=== PATIENT | male | born 1960 | race Caucasian/White ===

== ENCOUNTER 2017-12-23 14:24 | Inpatient (IN) | payer MEDICARE, MEDICAID ==
[~2017-12-23] VITALS: Ht 182.9 cm; Wt 63.5 kg
[~2017-12-23 14:24] MED LIST: AMLO5TAB4 PO; BUPR300T54 PO; DILT180C54 PO; DULO-31 PO; GABA-338 PO; METF500T PO; MOME17SP NS; NORCO10T PO; SITA100T15 PO; TAMS0.4C32 PO; ZOC40T PO; [UNRECOGNIZED DRUG - CODE] PO
[2017-12-23] MEDS ORDERED: ondansetron/PF 4mg/2ml inj IV ONE (14:40)
[2017-12-23] MEDS ORDERED: aspirin 81mg tab.chew PO ONE ×2 (14:40)
[2017-12-23 14:56] LABS: BASOPHILS % (AUTO) 0 % (0-1); EOSINOPHILS # (AUTO) 0.2 X10'3 (0-0.9); EOSINOPHILS % (AUTO) 1.6 % (0-6); HEMOGLOBIN 14.3 g/dl (14.0-17.9); LYMPHOCYTES # (AUTO) 0.9 X10'3 (1.1-4.8); MEAN CORPUSCULAR HEMOGLOBIN 29.6 PG (27.0-31.0); MEAN CORPUSCULAR HGB CONC 34.7 % (33.0-36.5); MEAN CORPUSCULAR VOLUME 85.3 FL (78-98); MEAN PLATELET VOLUME 7.1 FL (7.4-10.4); MONOCYTES # (AUTO) 1.1 X10'3 (0-0.9); NEUTROPHILS % (AUTO) 85.4 % (42-75); PLATELET COUNT 305 X10'3 (140-440); RED BLOOD COUNT 4.81 X10'6 (4.70-6.10); RED CELL DISTRIBUTION WIDTH 12.8 % (11.5-14.5); WHITE BLOOD COUNT 15.2 X10'3 (4.5-11.0)
[2017-12-23 15:06] LABS: INR 0.9 INR; PARTIAL THROMBOPLASTIN TIME 28 SECONDS (22-32); PROTHROMBIN TIME 9.1 SECONDS (9.0-12.0)
[2017-12-23 15:18] LABS: ALANINE AMINOTRANSFERASE 39 U/L (12-78); ALBUMIN 2.6 G/DL (3.4-5.0); ALBUMIN/GLOBULIN RATIO 0.6 (1.1-1.5); ALKALINE PHOSPHATASE 161 IU/L (46-116); ANION GAP 11 (8-16); ASPARTATE AMINO TRANSFERASE 20 U/L (10-37); BILIRUBIN,TOTAL 0.7 MG/DL (0.1-1.0); BLOOD UREA NITROGEN 21 MG/DL (7-18); BUN/CREATININE RATIO 14.4 (5.4-32.0); CALCIUM 8.9 MG/DL (8.5-10.1); CHLORIDE 90 MMOL/L (99-107); CREATININE 1.46 MG/DL (0.60-1.10); LIPASE 164 U/L (73-393); MAGNESIUM 1.8 MG/DL (1.5-2.4); POTASSIUM 3.5 MMOL/L (3.5-5.1); SODIUM 128 MMOL/L (135-145); TOTAL PROTEIN 7.3 G/DL (6.4-8.2); eGFR 50 ML/MIN
[2017-12-23 15:20] LABS: GLUCOSE 736 MG/DL (70-104)
[2017-12-23] MEDS ORDERED: dextrose 50%-water 50ml dispensing syringe IV PRN ×3 (15:20→15:45)
[2017-12-23] MEDS ORDERED: insulin regular, human 10 units/0.1 ml syringe IV ONE (15:20)
[2017-12-23] MEDS ORDERED: heparin 10,000 units/1 ML INJ IV ONE ×3 (15:25→16:00)
[2017-12-23] MEDS ORDERED: heparin 10,000 units/1 ML INJ IV PRN ×2 (15:30→16:00)
[2017-12-23] MEDS ORDERED: insulin regular, human 100 UNITS in normal saline 100ml IV soln 99 ML IV SCH ×4 (15:34→15:42)
[2017-12-23] MEDS: insulin Lispro (HumaLOG) vial - multi-dose SQ SCH ×4 (15:35→18:35)
[2017-12-23] MEDS ORDERED: insulin Lispro (HumaLOG) vial - multi-dose SQ SCH (15:45)
[2017-12-23] MEDS ORDERED: magnesium hydroxide 30ml (MOM) UD suspension PO PRN (16:00)
[2017-12-23] MEDS ORDERED: potassium Cl 20 mEq SR tablet PO PRN (16:00)
[2017-12-23] MEDS ORDERED: acetaminophen 325mg tablet PO PRN (16:00)
[2017-12-23] MEDS ORDERED: magnesium 4gm in 100ml NS 100 ML IV PRN (16:00)
[2017-12-23] MEDS ORDERED: mag hydrox/Alum hydrox/simeth 30ml oral suspension PO PRN (16:00)
[2017-12-23] MEDS ORDERED: ondansetron/PF 4mg/2ml inj IV PRN (16:00)
[2017-12-23] MEDS ORDERED: morphine 4 MG/ML inj SYRINge IV PRN ×2 (16:00)
[2017-12-23] MEDS ORDERED: magnesium Cl slow-release 64mg tablet PO PRN (16:00)
[2017-12-23] MEDS ORDERED: potassium Cl 40MEQ/NS 500ml 500 ML IV PRN ×2 (16:00)
[2017-12-23] MEDS ORDERED: magnesium 2GM in 50ml NS 50 ML IV PRN (16:00)
[2017-12-23] MEDS ORDERED: CefTRIAXone/D5W-Rocephin 1gm 50 ML IV ONE (16:20)
[2017-12-23] MEDS ORDERED: normal saline 1000ml 1,000 ML IV ONE ×2 (16:25)
[2017-12-23 16:38] LABS: HEMATOCRIT 39.8 % (42.0-52.0); HEMOGLOBIN 13.9 g/dl (14.0-17.9); MEAN CORPUSCULAR HEMOGLOBIN 29.5 PG (27.0-31.0); MEAN CORPUSCULAR VOLUME 84.3 FL (78-98); PLATELET COUNT 294 X10'3 (140-440); RED BLOOD COUNT 4.72 X10'6 (4.70-6.10); RED CELL DISTRIBUTION WIDTH 13.1 % (11.5-14.5); WHITE BLOOD COUNT 12.5 X10'3 (4.5-11.0)
[2017-12-23 16:38] LABS: CLARITY,URINE CLEAR (Clear); COLOR,URINE YELLOW (Yellow); GLUCOSE, URINE >=1000 mg/dl (Neg); KETONES,URINE NEGATIVE (Neg); LEUKOCYTE ESTERASE ,URINE NEGATIVE (Neg); NITRITES, URINE NEGATIVE (Neg); OCCULT BLOOD,URINE NEGATIVE (Neg); PROTEIN,URINE NEGATIVE (Neg); UROBILINOGEN,URINE 0.2 E.U/dL (0.2-1.0)
[2017-12-23 16:43] LABS: UA COLLECTION TYPE URINAL
[2017-12-23 16:44] LABS: CREATININE 1.05 MG/DL (0.60-1.10); eGFR 73 ML/MIN
[2017-12-23 16:44] LABS: BACTERIA,URINE NONE SEEN /HPF (Neg); MUCUS STRANDS FEW /LPF (Neg); RBC,URINE NONE SEEN /HPF (0-2); SQUAMOUS EPITHELIAL CELL,UR NONE SEEN /LPF (FEW); WBC,URINE NONE SEEN /HPF (0-4)
[2017-12-23 16:45] VITALS: BP 125/81
[2017-12-23 16:47] LABS: URINE AMPHETAMINE SCREEN POSITIVE (Neg); URINE BARBITUATE SCREEN NEGATIVE (Neg); URINE BENZODIAZEPINES SCREEN NEGATIVE (Neg); URINE CANNABINOID SCREEN POSITIVE (Neg); URINE COCAINE SCREEN NEGATIVE (Neg); URINE METHADONE SCREEN NEGATIVE (Neg); URINE OPIATE SCREEN NEGATIVE (Neg); URINE PHENCYCLIDINE SCREEN NEGATIVE (Neg)
[2017-12-23] MEDS: normal saline 1000ml 1,000 ML IV SCH (17:17)
[2017-12-23 17:45] LABS: HEMOGLOBIN A1C 11.9 % (4.5-6.2)
[2017-12-23 17:55] LABS: BLOOD UREA NITROGEN 20 MG/DL (7-18)
[2017-12-23 18:00] VITALS: BP 111/75
[2017-12-23] MEDS: metoprolol tartrate 12.5mg (1/2 tablet) PO SCH (19:07)
[2017-12-23] MEDS: lactobacillus rhamnosus 10,000 MMU CELLS/CAPSULE PO SCH (19:07)
[2017-12-23] MEDS: buPROPion SR 150mg tablet PO SCH (19:07)
[2017-12-23] MEDS ORDERED: nitroGLYCERIN 0.4mg SUBLingual tab SL ONE (19:35)
[2017-12-23 19:45] VITALS: BP 104/66
[2017-12-23] MEDS ORDERED: enoxaparin 60mg/0.6ml syringe SQ SCH (20:00)
[2017-12-23] MEDS ORDERED: LIDOcaine 1%/PF (10mg/ml) 5ml vial ONE ×2 (21:05→21:06)
[2017-12-23] MEDS ORDERED: heparin 1,000unit/ml 10ml vial 10 ML ONE (21:06)
[2017-12-23] MEDS ORDERED: iohexol 350MG/ML 100ml bottle IV ONE (21:06)
[2017-12-23] MEDS ORDERED: iohexol 350 MG/ML 50ML vial IV ONE (21:40)
[2017-12-23] MEDS ORDERED: ticagrelor 90mg tablet ONE (21:49)
[2017-12-23 22:00] VITALS: BP 123/78
[2017-12-23] MEDS: gabapentin 300mg capsule PO SCH (22:24)
[2017-12-24] MEDS ORDERED: proCHLORperazine 10 MG/2 ml inj IV PRN (00:25)
[2017-12-24] MEDS ORDERED: HYDROcodone/acetaminophen 5mg/325mg tablet PO PRN (00:25)
[2017-12-24] MEDS ORDERED: OXAZEpam 15mg capsule PO PRN (00:25)
[2017-12-24] MEDS ORDERED: HYDROcodone/acetaminophen 10/325mg tab PO PRN (00:25)
[2017-12-24] MEDS ORDERED: ondansetron/PF 4mg/2ml inj IV PRN (00:25)
[2017-12-24] MEDS ORDERED: glucagon, human recombinant 1mg kit SUBCUT PRN (01:05)
[2017-12-24] MEDS ORDERED: dextrose 50%-water 50ml dispensing syringe IV PRN ×2 (01:05)
[2017-12-24] MEDS ORDERED: MESSAGE TO PHARMACY PO ONE (01:05)
[2017-12-24] MEDS ORDERED: dextrose ORAL solution 15 GM/59 ML bottle PO PRN ×2 (01:05)
[2017-12-24] MEDS: insulin Lispro (HumaLOG) vial - multi-dose SQ SCH ×5 (01:21→22:14)
[2017-12-24 02:00] VITALS: BP 125/72
[2017-12-24] MEDS: normal saline 1000ml 1,000 ML IV SCH ×3 (02:39→21:58)
[2017-12-24 05:02] LABS: BASOPHILS % (AUTO) 0.1 % (0-1); EOSINOPHILS # (AUTO) 0.3 X10'3 (0-0.9); EOSINOPHILS % (AUTO) 1.8 % (0-6); HEMATOCRIT 39.7 % (42.0-52.0); HEMOGLOBIN 13.6 g/dl (14.0-17.9); LYMPHOCYTES # (AUTO) 1.5 X10'3 (1.1-4.8); MEAN CORPUSCULAR HEMOGLOBIN 29.6 PG (27.0-31.0); MEAN CORPUSCULAR HGB CONC 34.1 % (33.0-36.5); MEAN CORPUSCULAR VOLUME 86.6 FL (78-98); MEAN PLATELET VOLUME 7.1 FL (7.4-10.4); MONOCYTES # (AUTO) 1.1 X10'3 (0-0.9); MONOCYTES % (AUTO) 7.4 % (2-12); NEUTROPHILS # (AUTO) 12.5 X10'3 (1.8-7.7); NEUTROPHILS % (AUTO) 80.7 % (42-75); PLATELET COUNT 292 X10'3 (140-440); RED BLOOD COUNT 4.58 X10'6 (4.70-6.10); RED CELL DISTRIBUTION WIDTH 13.2 % (11.5-14.5); WHITE BLOOD COUNT 15.5 X10'3 (4.5-11.0)
[2017-12-24 05:39] LABS: ALANINE AMINOTRANSFERASE 32 U/L (12-78); ALBUMIN 2.3 G/DL (3.4-5.0); ALBUMIN/GLOBULIN RATIO 0.5 (1.1-1.5); ALKALINE PHOSPHATASE 165 IU/L (46-116); ANION GAP 7 (8-16); ASPARTATE AMINO TRANSFERASE 24 U/L (10-37); BILIRUBIN,TOTAL 0.6 MG/DL (0.1-1.0); BLOOD UREA NITROGEN 18 MG/DL (7-18); BUN/CREATININE RATIO 22.2 (5.4-32.0); CALCIUM 8.8 MG/DL (8.5-10.1); CHLORIDE 100 MMOL/L (99-107); CHOL/HDL RATIO 4.4 (0.00-4.99); CHOLESTEROL 144 MG/DL (0-200); CREATININE 0.81 MG/DL (0.60-1.10); GLUCOSE 220 MG/DL (70-104); HDL CHOLESTEROL 33 MG/DL (35-60); LDL CHOLESTEROL 89 MG/DL (50-100); MAGNESIUM 1.9 MG/DL (1.5-2.4); POTASSIUM 3.1 MMOL/L (3.5-5.1); SODIUM 137 MMOL/L (135-145); TOTAL PROTEIN 6.7 G/DL (6.4-8.2); TRIGLYCERIDES 117 MG/DL (20-135); eGFR > 90 ML/MIN
[2017-12-24 07:00] VITALS: BP 166/111
[2017-12-24] MEDS: fluticasone nasal spray 16GM bottle NS SCH (07:18)
[2017-12-24] MEDS: CefTRIAXone/D5W-Rocephin 1gm 50 ML IV SCH (07:18)
[2017-12-24] MEDS: buPROPion SR 150mg tablet PO SCH ×2 (07:19→19:56)
[2017-12-24] MEDS: gabapentin 300mg capsule PO SCH ×3 (07:20→21:59)
[2017-12-24] MEDS: duloxetine 30mg CAPSULE.DR PO SCH (07:20)
[2017-12-24] MEDS: lisinopril 10 MG tablet PO SCH (07:21)
[2017-12-24] MEDS: metoprolol tartrate 12.5mg (1/2 tablet) PO SCH ×2 (07:21→19:56)
[2017-12-24] MEDS: diltiazem CD 180mg cap (once-daily) PO SCH (07:22)
[2017-12-24] MEDS: tamsulosin 0.4mg capsule PO SCH (07:22)
[2017-12-24] MEDS: lamoTRIgine 100mg tablet PO SCH (07:22)
[2017-12-24] MEDS: lactobacillus rhamnosus 10,000 MMU CELLS/CAPSULE PO SCH ×2 (07:22→19:56)
[2017-12-24] MEDS: potassium Cl 20 mEq SR tablet PO PRN ×3 (07:22→19:56)
[2017-12-24] MEDS: atorvastatin 10mg tablet PO SCH (07:22)
[2017-12-24] MEDS: ticagrelor 90mg tablet PO SCH ×2 (07:23→19:56)
[2017-12-24] MEDS: K and/or MAG REPLACEMENT MC SCH (08:00)
[2017-12-24] MEDS: aspirin 81mg tablet.DR PO SCH (08:09)
[2017-12-24 11:00] VITALS: BP 107/71
[2017-12-24 15:00] VITALS: BP 115/71
[2017-12-24 19:00] VITALS: BP 129/83
[2017-12-24] MEDS ORDERED: LISI1TAB13 (19:38)
[2017-12-24] MEDS: insulin glargine (Lantus) pen - multi-dose SQ SCH (22:12)
[2017-12-24 23:00] VITALS: BP 125/84
[2017-12-25 03:00] VITALS: BP 140/88
[2017-12-25 05:10] LABS: BASOPHILS % (AUTO) 0.1 % (0-1); EOSINOPHILS # (AUTO) 0.5 X10'3 (0-0.9); EOSINOPHILS % (AUTO) 3.1 % (0-6); HEMATOCRIT 37.8 % (42.0-52.0); HEMOGLOBIN 13.2 g/dl (14.0-17.9); LYMPHOCYTES # (AUTO) 1.8 X10'3 (1.1-4.8); LYMPHOCYTES % (AUTO) 12.4 % (21-51); MEAN CORPUSCULAR HGB CONC 34.9 % (33.0-36.5); MEAN CORPUSCULAR VOLUME 85.9 FL (78-98); MEAN PLATELET VOLUME 7.2 FL (7.4-10.4); MONOCYTES # (AUTO) 1.2 X10'3 (0-0.9); MONOCYTES % (AUTO) 8.5 % (2-12); NEUTROPHILS # (AUTO) 11.2 X10'3 (1.8-7.7); NEUTROPHILS % (AUTO) 75.9 % (42-75); PLATELET COUNT 296 X10'3 (140-440); RED CELL DISTRIBUTION WIDTH 13.2 % (11.5-14.5); WHITE BLOOD COUNT 14.7 X10'3 (4.5-11.0)
[2017-12-25 05:37] LABS: ALANINE AMINOTRANSFERASE 40 U/L (12-78); ALBUMIN/GLOBULIN RATIO 0.5 (1.1-1.5); ALKALINE PHOSPHATASE 223 IU/L (46-116); ANION GAP 8 (8-16); ASPARTATE AMINO TRANSFERASE 33 U/L (10-37); BILIRUBIN,TOTAL 0.6 MG/DL (0.1-1.0); BLOOD UREA NITROGEN 19 MG/DL (7-18); BUN/CREATININE RATIO 18.3 (5.4-32.0); CALCIUM 8.7 MG/DL (8.5-10.1); CHLORIDE 102 MMOL/L (99-107); CREATININE 1.04 MG/DL (0.60-1.10); GLUCOSE 131 MG/DL (70-104); MAGNESIUM 1.8 MG/DL (1.5-2.4); POTASSIUM 3.6 MMOL/L (3.5-5.1); SODIUM 140 MMOL/L (135-145); TOTAL CARBON DIOXIDE 30.3 MMOL/L (24-32); TOTAL PROTEIN 6.4 G/DL (6.4-8.2); eGFR 74 ML/MIN
[2017-12-25 07:00] VITALS: BP 163/94
[2017-12-25] MEDS: fluticasone nasal spray 16GM bottle NS SCH (07:37)
[2017-12-25] MEDS: ticagrelor 90mg tablet PO SCH ×2 (07:37→19:44)
[2017-12-25] MEDS: diltiazem CD 180mg cap (once-daily) PO SCH (07:38)
[2017-12-25] MEDS: lactobacillus rhamnosus 10,000 MMU CELLS/CAPSULE PO SCH ×2 (07:39→19:44)
[2017-12-25] MEDS: gabapentin 300mg capsule PO SCH ×3 (07:41→21:19)
[2017-12-25] MEDS: tamsulosin 0.4mg capsule PO SCH (07:41)
[2017-12-25] MEDS: atorvastatin 10mg tablet PO SCH (07:41)
[2017-12-25] MEDS: buPROPion SR 150mg tablet PO SCH ×2 (07:42→19:45)
[2017-12-25] MEDS: aspirin 81mg tablet.DR PO SCH (07:42)
[2017-12-25] MEDS: duloxetine 30mg CAPSULE.DR PO SCH (07:42)
[2017-12-25] MEDS: lamoTRIgine 100mg tablet PO SCH (07:43)
[2017-12-25] MEDS: lisinopril 10 MG tablet PO SCH (07:43)
[2017-12-25] MEDS: metoprolol tartrate 12.5mg (1/2 tablet) PO SCH ×2 (07:44→19:44)
[2017-12-25] MEDS: CefTRIAXone/D5W-Rocephin 1gm 50 ML IV SCH (07:53)
[2017-12-25] MEDS: normal saline 1000ml 1,000 ML IV SCH ×2 (07:58→19:49)
[2017-12-25] MEDS: K and/or MAG REPLACEMENT MC SCH (08:00)
[2017-12-25] MEDS: insulin Lispro (HumaLOG) vial - multi-dose SQ SCH ×3 (08:59→19:44)
[2017-12-25 11:00] VITALS: BP 100/75
[2017-12-25 15:00] VITALS: BP 105/67
[2017-12-25 19:00] VITALS: BP 108/74
[2017-12-25] MEDS: insulin glargine (Lantus) pen - multi-dose SQ SCH (21:29)
[2017-12-25 23:00] VITALS: BP 101/65
[2017-12-26 03:00] VITALS: BP 133/81
[2017-12-26] MEDS: normal saline 1000ml 1,000 ML IV SCH ×3 (03:58→23:58)
[2017-12-26 05:18] LABS: BASOPHILS % (AUTO) 0.2 % (0-1); EOSINOPHILS # (AUTO) 0.4 X10'3 (0-0.9); EOSINOPHILS % (AUTO) 3.6 % (0-6); HEMATOCRIT 38.8 % (42.0-52.0); HEMOGLOBIN 13.4 g/dl (14.0-17.9); LYMPHOCYTES # (AUTO) 2.3 X10'3 (1.1-4.8); LYMPHOCYTES % (AUTO) 19.2 % (21-51); MEAN CORPUSCULAR HGB CONC 34.6 % (33.0-36.5); MEAN CORPUSCULAR VOLUME 86.7 FL (78-98); MEAN PLATELET VOLUME 7.3 FL (7.4-10.4); MONOCYTES % (AUTO) 8.3 % (2-12); NEUTROPHILS # (AUTO) 8.2 X10'3 (1.8-7.7); NEUTROPHILS % (AUTO) 68.7 % (42-75); PLATELET COUNT 392 X10'3 (140-440); RED BLOOD COUNT 4.48 X10'6 (4.70-6.10); RED CELL DISTRIBUTION WIDTH 13.2 % (11.5-14.5)
[2017-12-26 05:35] LABS: ALANINE AMINOTRANSFERASE 42 U/L (12-78); ALBUMIN 2.1 G/DL (3.4-5.0); ALBUMIN/GLOBULIN RATIO 0.4 (1.1-1.5); ALKALINE PHOSPHATASE 305 IU/L (46-116); ANION GAP 10 (8-16); ASPARTATE AMINO TRANSFERASE 35 U/L (10-37); BILIRUBIN,TOTAL 0.5 MG/DL (0.1-1.0); BLOOD UREA NITROGEN 20 MG/DL (7-18); BUN/CREATININE RATIO 22.2 (5.4-32.0); CALCIUM 8.6 MG/DL (8.5-10.1); CHLORIDE 102 MMOL/L (99-107); GLUCOSE 133 MG/DL (70-104); MAGNESIUM 1.7 MG/DL (1.5-2.4); POTASSIUM 3.7 MMOL/L (3.5-5.1); SODIUM 137 MMOL/L (135-145); TOTAL CARBON DIOXIDE 25.3 MMOL/L (24-32); TOTAL PROTEIN 6.8 G/DL (6.4-8.2); eGFR 87 ML/MIN
[2017-12-26 07:00] VITALS: BP 127/82
[2017-12-26] MEDS: K and/or MAG REPLACEMENT MC SCH (08:00)
[2017-12-26] MEDS: fluticasone nasal spray 16GM bottle NS SCH (08:00)
[2017-12-26] MEDS: CefTRIAXone/D5W-Rocephin 1gm 50 ML IV SCH (08:05)
[2017-12-26] MEDS: duloxetine 30mg CAPSULE.DR PO SCH (08:12)
[2017-12-26] MEDS: lisinopril 10 MG tablet PO SCH (08:14)
[2017-12-26] MEDS: gabapentin 300mg capsule PO SCH ×3 (08:14→20:04)
[2017-12-26] MEDS: lactobacillus rhamnosus 10,000 MMU CELLS/CAPSULE PO SCH ×2 (08:14→20:03)
[2017-12-26] MEDS: diltiazem CD 180mg cap (once-daily) PO SCH (08:14)
[2017-12-26] MEDS: metoprolol tartrate 12.5mg (1/2 tablet) PO SCH ×2 (08:18→20:04)
[2017-12-26] MEDS: buPROPion SR 150mg tablet PO SCH ×2 (08:20→20:04)
[2017-12-26] MEDS: ticagrelor 90mg tablet PO SCH ×2 (08:21→20:04)
[2017-12-26] MEDS: aspirin 81mg tablet.DR PO SCH (08:21)
[2017-12-26] MEDS: tamsulosin 0.4mg capsule PO SCH (08:21)
[2017-12-26] MEDS: atorvastatin 10mg tablet PO SCH (08:22)
[2017-12-26] MEDS: lamoTRIgine 100mg tablet PO SCH (08:22)
[2017-12-26] MEDS: insulin Lispro (HumaLOG) vial - multi-dose SQ SCH (08:31)
[2017-12-26] MEDS ORDERED: metFORMIN 500mg tablet PO ONE (08:35)
[2017-12-26 11:00] VITALS: BP 89/61
[2017-12-26] MEDS: metFORMIN 500mg tablet PO SCH ×2 (12:42→20:03)
[2017-12-26 15:00] VITALS: BP 126/76
[2017-12-26 19:00] VITALS: BP 127/83
[2017-12-26] MEDS ORDERED: metFORMIN 500mg tablet PO SCH (20:00)
[2017-12-26 23:00] VITALS: BP 119/83
[2017-12-27 03:00] VITALS: BP 130/78
[2017-12-27 05:38] LABS: BASOPHILS % (AUTO) 0.4 % (0-1); EOSINOPHILS # (AUTO) 0.4 X10'3 (0-0.9); EOSINOPHILS % (AUTO) 3.9 % (0-6); HEMATOCRIT 34.6 % (42.0-52.0); HEMOGLOBIN 12.2 g/dl (14.0-17.9); LYMPHOCYTES # (AUTO) 1.9 X10'3 (1.1-4.8); LYMPHOCYTES % (AUTO) 18.5 % (21-51); MEAN CORPUSCULAR HEMOGLOBIN 29.9 PG (27.0-31.0); MEAN CORPUSCULAR HGB CONC 35.2 % (33.0-36.5); MEAN CORPUSCULAR VOLUME 85.1 FL (78-98); MEAN PLATELET VOLUME 7.1 FL (7.4-10.4); MONOCYTES # (AUTO) 0.8 X10'3 (0-0.9); MONOCYTES % (AUTO) 8.1 % (2-12); NEUTROPHILS # (AUTO) 7.1 X10'3 (1.8-7.7); NEUTROPHILS % (AUTO) 69.1 % (42-75); PLATELET COUNT 405 X10'3 (140-440); RED BLOOD COUNT 4.06 X10'6 (4.70-6.10); RED CELL DISTRIBUTION WIDTH 13.2 % (11.5-14.5); WHITE BLOOD COUNT 10.3 X10'3 (4.5-11.0)
[2017-12-27 05:54] LABS: ALANINE AMINOTRANSFERASE 30 U/L (12-78); ALBUMIN 1.7 G/DL (3.4-5.0); ALBUMIN/GLOBULIN RATIO 0.4 (1.1-1.5); ALKALINE PHOSPHATASE 203 IU/L (46-116); ANION GAP 8 (8-16); ASPARTATE AMINO TRANSFERASE 20 U/L (10-37); BILIRUBIN,TOTAL 0.3 MG/DL (0.1-1.0); BLOOD UREA NITROGEN 18 MG/DL (7-18); BUN/CREATININE RATIO 22.8 (5.4-32.0); CALCIUM 8.3 MG/DL (8.5-10.1); CHLORIDE 103 MMOL/L (99-107); CREATININE 0.79 MG/DL (0.60-1.10); GLUCOSE 197 MG/DL (70-104); MAGNESIUM 1.7 MG/DL (1.5-2.4); POTASSIUM 3.9 MMOL/L (3.5-5.1); SODIUM 136 MMOL/L (135-145); TOTAL CARBON DIOXIDE 25.5 MMOL/L (24-32); TOTAL PROTEIN 5.8 G/DL (6.4-8.2); eGFR > 90 ML/MIN
[2017-12-27 06:00] VITALS: BP 132/86
[2017-12-27] MEDS: fluticasone nasal spray 16GM bottle NS SCH (08:00)
[2017-12-27] MEDS: K and/or MAG REPLACEMENT MC SCH (08:00)
[2017-12-27] MEDS: atorvastatin 10mg tablet PO SCH (08:52)
[2017-12-27] MEDS: metoprolol tartrate 12.5mg (1/2 tablet) PO SCH (08:53)
[2017-12-27] MEDS: duloxetine 30mg CAPSULE.DR PO SCH (08:54)
[2017-12-27] MEDS: lactobacillus rhamnosus 10,000 MMU CELLS/CAPSULE PO SCH (08:55)
[2017-12-27] MEDS: diltiazem CD 180mg cap (once-daily) PO SCH (08:55)
[2017-12-27] MEDS: gabapentin 300mg capsule PO SCH ×2 (08:56→14:22)
[2017-12-27] MEDS: buPROPion SR 150mg tablet PO SCH (08:56)
[2017-12-27] MEDS: tamsulosin 0.4mg capsule PO SCH (08:56)
[2017-12-27] MEDS: ticagrelor 90mg tablet PO SCH (08:56)
[2017-12-27] MEDS: lisinopril 10 MG tablet PO SCH (08:57)
[2017-12-27] MEDS: metFORMIN 500mg tablet PO SCH (08:58)
[2017-12-27] MEDS: aspirin 81mg tablet.DR PO SCH (08:58)
[2017-12-27] MEDS: CefTRIAXone/D5W-Rocephin 1gm 50 ML IV SCH (09:01)
[2017-12-27] MEDS: lamoTRIgine 100mg tablet PO SCH (09:18)
[2017-12-27] MEDS ORDERED: TICA90TA PO (09:44)
[2017-12-27] MEDS ORDERED: GABA300C PO (09:44)
[2017-12-27] MEDS ORDERED: METO25TA6 PO (09:44)
[2017-12-27] MEDS ORDERED: SITA100T11 PO (09:44)
[2017-12-27] MEDS ORDERED: ASPI-1071 PO (09:44)
[2017-12-27] MEDS ORDERED: LAMO100T89 PO (09:44)
[2017-12-27] MEDS ORDERED: DILT180C66 PO (09:44)
[2017-12-27] MEDS ORDERED: BUPR-84 PO (09:44)
[2017-12-27] MEDS ORDERED: LISI10TA4 PO (09:44)
[2017-12-27] MEDS ORDERED: LEVO500T2 PO (09:57)
[2017-12-27] MEDS ORDERED: METF500T4 PO (09:57)
[2017-12-27] MEDS: normal saline 1000ml 1,000 ML IV SCH (09:58)
[2017-12-27 11:00] VITALS: BP 114/77
== END 2017-12-27 14:40 | disposition home or self-care (01) | DRG 246 ==
LOC: ER 14:24 → ED HOLD 15:58 → PCU 3S 17:14
PROVIDERS: ADMIT Legal Medicine; ATTEND Internal Medicine
PROC: 4A023N7 Measurement of Cardiac Sampling and Pressure, Left Heart, Percutaneous Approach (ICD-10-PCS; principal; 2017-12-23)
PROC: 027034Z Dilation of Coronary Artery, One Artery with Drug-eluting Intraluminal Device, Percutaneous Approach (ICD-10-PCS; 2017-12-23)
PROC: B2111ZZ Fluoroscopy of Multiple Coronary Arteries using Low Osmolar Contrast (ICD-10-PCS; 2017-12-23)
PROC: B2151ZZ Fluoroscopy of Left Heart using Low Osmolar Contrast (ICD-10-PCS; 2017-12-23)
DX: I25.10 Atherosclerotic heart disease of native coronary artery without angina pectoris (principal); J13 Pneumonia due to Streptococcus pneumoniae; G93.40 Encephalopathy, unspecified; R65.10 Systemic inflammatory response syndrome (SIRS) of non-infectious origin without acute organ dysfunction; Z68.1 Body mass index [BMI] 19.9 or less, adult; E11.65 Type 2 diabetes mellitus with hyperglycemia; F31.9 Bipolar disorder, unspecified; E78.5 Hyperlipidemia, unspecified; G89.29 Other chronic pain; I10 Essential (primary) hypertension; N40.0 Benign prostatic hyperplasia without lower urinary tract symptoms; F15.90 Other stimulant use, unspecified, uncomplicated; Z95.5 Presence of coronary angioplasty implant and graft; Z79.899 Other long term (current) drug therapy; Z79.84 Long term (current) use of oral hypoglycemic drugs; Z87.891 Personal history of nicotine dependence; Z82.49 Family history of ischemic heart disease and other diseases of the circulatory system; Z71.51 Drug abuse counseling and surveillance of drug abuser
CPT/HCPCS: 93306; 93458; 96374; 96375; 99285; C9600; 36415; 71045; 80053; 80061; 80305; 81001; 82565; 82948; 83036; 83605; 83690; 83735; 83880; 84484; 84520; 85025; 85027; 85610; 85730; 87040; 87070; 87077; 87186; 93005; A4620; A6257; C1760; C1769; C1874; J0696; J1644; J1650; J1815; J2001; J2270; J2405; J3480; J7030; Q9967

== ENCOUNTER 2018-03-21 23:04 | Emergency (ER) | payer MEDICARE, OTHER ==
[~2018-03-21] VITALS: Ht 182.9 cm; Wt 72.7 kg
[~2018-03-21 23:04] MED LIST changes: -AMLO5TAB4 PO; +ASPI-1071 PO; +BUPR-84 PO; -BUPR300T54 PO; -DILT180C54 PO; +DILT180C66 PO; -GABA-338 PO; +GABA300C PO; +LAMO100T89 PO; +LISI10TA4 PO; +LISI1TAB13; +METF500T6 PO; +METO25TA6 PO; -MOME17SP NS; -NORCO10T PO; +ONDA8TAB9 PO; +SITA100T11 PO; -SITA100T15 PO; +TICA90TA PO; -[UNRECOGNIZED DRUG - CODE] PO
[2018-03-21 23:38] LABS: BASOPHILS % (AUTO) 0.5 % (0-1); EOSINOPHILS # (AUTO) 0.1 X10'3 (0-0.9); EOSINOPHILS % (AUTO) 1.7 % (0-6); HEMATOCRIT 44.6 % (42.0-52.0); HEMOGLOBIN 15.4 g/dl (14.0-17.9); LYMPHOCYTES # (AUTO) 2.6 X10'3 (1.1-4.8); MEAN CORPUSCULAR HEMOGLOBIN 29.7 PG (27.0-31.0); MEAN CORPUSCULAR HGB CONC 34.5 % (33.0-36.5); MEAN CORPUSCULAR VOLUME 86.2 FL (78-98); MEAN PLATELET VOLUME 6.7 FL (7.4-10.4); MONOCYTES # (AUTO) 0.6 X10'3 (0-0.9); MONOCYTES % (AUTO) 6.9 % (2-12); NEUTROPHILS # (AUTO) 5.5 X10'3 (1.8-7.7); NEUTROPHILS % (AUTO) 61.9 % (42-75); PLATELET COUNT 373 X10'3 (140-440); RED BLOOD COUNT 5.17 X10'6 (4.70-6.10); RED CELL DISTRIBUTION WIDTH 13.3 % (11.5-14.5); WHITE BLOOD COUNT 8.9 X10'3 (4.5-11.0)
[2018-03-21 23:47] LABS: PARTIAL THROMBOPLASTIN TIME 24 SECONDS (22-32); PROTHROMBIN TIME 10.1 SECONDS (9.0-12.0)
[2018-03-21 23:56] LABS: ALANINE AMINOTRANSFERASE 21 U/L (12-78); ALBUMIN 3.1 G/DL (3.4-5.0); ALBUMIN/GLOBULIN RATIO 0.8 (1.1-1.5); ALKALINE PHOSPHATASE 115 IU/L (46-116); ANION GAP 5 (8-16); ASPARTATE AMINO TRANSFERASE 14 U/L (10-37); BILIRUBIN,TOTAL 0.4 MG/DL (0.1-1.0); BLOOD UREA NITROGEN 19 MG/DL (7-18); BUN/CREATININE RATIO 18.4 (5.4-32.0); CHLORIDE 99 MMOL/L (99-107); CREATININE 1.03 MG/DL (0.60-1.10); GLUCOSE 273 MG/DL (70-104); POTASSIUM 3.4 MMOL/L (3.5-5.1); SODIUM 137 MMOL/L (135-145); TOTAL CARBON DIOXIDE 32.6 MMOL/L (24-32); TOTAL PROTEIN 6.9 G/DL (6.4-8.2); eGFR 75 ML/MIN
[2018-03-22 01:52] VITALS: BP 155/96
== END 2018-03-22 03:00 ==
LOC: ER 23:05
DX: R07.89 Other chest pain (principal); I25.10 Atherosclerotic heart disease of native coronary artery without angina pectoris; E11.9 Type 2 diabetes mellitus without complications; G89.29 Other chronic pain; F31.9 Bipolar disorder, unspecified; Z56.0 Unemployment, unspecified; Z98.61 Coronary angioplasty status; Z79.82 Long term (current) use of aspirin; Z79.84 Long term (current) use of oral hypoglycemic drugs; Z79.899 Other long term (current) drug therapy
CPT/HCPCS: 36415; 71045; 80053; 84484; 85025; 85610; 85730; 93005; 99285